=== PATIENT | female | born 1995 | race Caucasian/White ===

== ENCOUNTER → 2019-12-08 | Outpatient (CLI) | payer OTHER | END | disposition home or self-care (01) | LOC: CFH 07:50 | PROVIDERS: ATTEND Physician Assistant | DX: R10.9 Unspecified abdominal pain (principal) | CPT/HCPCS: 74176 ==

== ENCOUNTER → 2020-06-10 | Outpatient (CLI) | payer OTHER ==
[~2020-06-10] MED LIST: LEVO1TAB41 PO
[2020-06-10 16:52] LABS: BASOPHILS % (AUTO) 1 % (0-1); EOSINOPHILS % (AUTO) 4 % (1-7); LYMPHOCYTES % (AUTO) 35 % (22-44); MEAN CORPUSCULAR HGB CONC 34.7 g/dL (32.4-35.8); MEAN PLATELET VOLUME 8.2 fL (7.4-10.4); MONOCYTES % (AUTO) 6 % (2-9); NEUTROPHILS % (AUTO) 54 % (42-75); PLATELET COUNT 285 x10^3/uL (130-400); RED BLOOD COUNT 4.16 x10^6/uL (3.82-5.3); RED CELL DISTRIBUTION WIDTH 12.2 % (9.6-15.2)
[2020-06-10 16:54] LABS: MD NO
[2020-06-10 16:54] LABS: MICROSCOPIC NOT IND
== END | disposition home or self-care (01) ==
LOC: STAR 15:52
PROVIDERS: ATTEND Obstetrics & Gynecology
DX: Z01.812 Encounter for preprocedural laboratory examination (principal); Z20.822 Contact with and (suspected) exposure to COVID-19; N80.9 Endometriosis, unspecified
CPT/HCPCS: 36415; 81003; 84703; 85025; U0003

== ENCOUNTER 2020-06-14 10:30 | Day surgery (SDC) | payer OTHER ==
[~2020-06-14] VITALS: Ht 157.5 cm; Wt 58.6 kg
[~2020-06-14 10:30] MED LIST changes: +BUPIVACAINE/PF 0.25% ONE; +EPINEPHRINE 1 MG/ML, 1ML ONE
[2020-06-14] MEDS ORDERED: CHLORHEXIDINE 15 ML UDC ONE (10:36)
[2020-06-14] MEDS ORDERED: FENTANYL PF 100 MCG/2ML ONE ×3 (10:40→12:18)
[2020-06-14] MEDS ORDERED: MIDAZOLAM 1 MG/ML, 2ML ONE (10:40)
[2020-06-14] MEDS ORDERED: LIDOCAINE-MPF 1%, 2ML ONE (10:46)
[2020-06-14] MEDS ORDERED: KETOROLAC 30 MG/1 ML ONE (10:57)
[2020-06-14] MEDS ORDERED: DEXAMETHASONE 4 MG/ML, 1ML ONE (10:57)
[2020-06-14] MEDS ORDERED: LACTATED RINGERS 1,000 ML IV SCH (11:00)
[2020-06-14] MEDS ORDERED: CHLORHEXIDINE 15 ML UDC PO ONE (11:00)
[2020-06-14 11:10] LABS: HCG UR SG 1.018 (1.003-1.030)
[2020-06-14] MEDS ORDERED: BUPIVACAINE/PF-EPI 0.25% 1:200K INFIL ONE (11:20)
[2020-06-14] MEDS ORDERED: GLYCOPYRROLATE 0.2MG/1ML, 5ML ONE (11:37)
[2020-06-14] MEDS ORDERED: PROPOFOL 10 MG/ML, 20ML ONE (11:37)
[2020-06-14] MEDS ORDERED: SUCCINYLCHOLINE 20 MG/ML, 10ML ONE (11:37)
[2020-06-14] MEDS ORDERED: ONDANSETRON 2MG/ML, 2ML ONE (11:37)
[2020-06-14] MEDS ORDERED: CEFAZOLIN 1,000 MG ONE (11:37)
[2020-06-14] MEDS ORDERED: NEOSTIGMINE 1 MG/ML, 10ML ONE (11:37)
[2020-06-14] MEDS ORDERED: ROCURONIUM 10MG/ML,5ML ONE (11:37)
[2020-06-14] MEDS ORDERED: SUGAMMADEX 200 MG/2 ML IVPush ONE (11:47)
[2020-06-14] MEDS ORDERED: PROMETHAZINE 25 MG/ML, 1ML IVPush PRN (12:00)
[2020-06-14] MEDS ORDERED: LORazepam 2 MG/ML, 1ML IVPush PRN (12:00)
[2020-06-14] MEDS ORDERED: METHOCARBAMOL 1,000 MG in DEXTROSE 5% 100 ML IV PRN (12:00)
[2020-06-14] MEDS ORDERED: ACETAMINOPHEN 325 MG TABLET PO PRN (12:00)
[2020-06-14] MEDS ORDERED: PROMETHAZINE 25 MG SUPP PR PRN (12:00)
[2020-06-14] MEDS ORDERED: MEPERIDINE/PF 25MG/0.5ML IVPush PRN (12:00)
[2020-06-14] MEDS ORDERED: HYDROmorphone 1 MG/ML, 1ML INJ IVPush PRN (12:00)
[2020-06-14] MEDS: OXYcodone 5 MG/5 ML ORAL.SOL UDC PO PRN ×3 (12:05→13:58)
[2020-06-14] MEDS ORDERED: ACETAMINOPHEN 650 MG/20.3 ML UDC ONE (12:05)
[2020-06-14] MEDS ORDERED: OXYcodone 5 MG/5 ML ORAL.SOL UDC ONE (12:05)
[2020-06-14] MEDS ORDERED: DOCU-131 PO (12:06)
[2020-06-14] MEDS ORDERED: IBUP-1223 PO (12:06)
[2020-06-14] MEDS ORDERED: OXYC1TAB14 PO (12:06)
[2020-06-14] MEDS: FENTANYL PF 100 MCG/2ML IV PRN ×3 (12:15→12:26)
== END 2020-06-14 14:05 | disposition home or self-care (01) ==
LOC: OUT 10:30
PROVIDERS: ATTEND Obstetrics & Gynecology
DX: N94.6 Dysmenorrhea, unspecified (principal); N80.1 Endometriosis of ovary; N94.19 Other specified dyspareunia; Z98.890 Other specified postprocedural states; Z72.89 Other problems related to lifestyle; Z79.899 Other long term (current) drug therapy
CPT/HCPCS: 58662; 81025; J0171; J0330; J0690; J1100; J1885; J2250; J2405; J2704; J2710; J3010; J7120